=== PATIENT | female | born 2000 | race Hispanic/Latino ===

== ENCOUNTER 2025-03-26 19:26 | Emergency (ER) | payer BC ==
[~2025-03-26] VITALS: Ht 154.9 cm; Wt 48.2 kg
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
[2025-03-26] MEDS: LACTATED RINGERS 1000ML IV STA (19:43)
[2025-03-26] MEDS ORDERED: ORPHENADRINE 60MG/2ML IVP ONE (20:00)
[2025-03-26 20:50] LABS: IMMATURE GRANULOCYTE ABSOLUTE 0.09 K/uL (0-1); NUCLEATED RED BLOOD CELLS 0.0 % (0.0-0.19); PLATELET COUNT (AUTO) 379 K/uL (130-400); RED BLOOD CELL COUNT(AUTO) 5.06 MIL/uL (4.00-5.50); RED CELL DISTRIBUTION WIDTH 13.1 % (11.0-15.5); WHITE BLOOD COUNT (AUTO) 21.7 K/uL (4.8-10.8)
[2025-03-26 21:00] VITALS: BP 96/42; PULSE 78; RESP 17; TEMP 98.3; O2SAT 99
[2025-03-26 21:12] LABS: ALCOHOL, BLOOD < 3 mg/dL (0-10); ASPARTATE AMINOTRANSFERASE 28 U/L (10-37); CREATININE 0.7 mg/dL (0.5-1.0); GLOMERULAR FILTR. RATE CALC 125 mL/min (>90); GLUCOSE,RANDOM 97 mg/dL (70-105); TOTAL PROTEIN, SERUM 8.0 g/dL (6.0-8.3); UREA NITROGEN, BLOOD 14 mg/dL (7-18)
[2025-03-26 21:19] LABS: SODIUM SERUM 143 mmol/L (136-145)
== END 2025-03-26 22:18 | disposition home or self-care (01) ==
LOC: EDH 19:26
DX: E86.0 Dehydration (principal); E87.20 Acidosis, unspecified; E80.7 Disorder of bilirubin metabolism, unspecified
CPT/HCPCS: 99283; 96360; 96361; 83735; 80053; 85025; 83605; 36415; J7120